=== PATIENT | female | born 1975 | race Hispanic/Latino ===

== ENCOUNTER → 2017-12-14 | Day surgery (SDC) | payer OTHER ==
[~2017-12-14] MED LIST: BUPIVACAINE HCL 0.5% INJ 30 ML VIAL INJ ONE; CLINDAMYCIN PHOS 900MG/ D5W 50 50 ML IV ONE; DEXAMETHASONE SOD PHOS INJ 4 MG/ML VIAL ONE; FENTANYL CITRATE/PF 100MCG/2 ML INJ ONE; LIDOCAINE HCL 2% LOCAL INJ 5 ML SDV VIAL INJ ONE; LORATADINE10 MG PO; LORAZEPAM0.5 MG PO; MIDAZOLAM HCL 2 MG/2 ML VIAL ONE; ONDANSETRON HCL INJ 2 MG/ML VIAL ONE; PROPOFOL IV EMULSION 10 MG/ML 20 ML VIAL ONE; SEVOFLURANE INHAL SOLN 250 ML PEN BTL ONE; SILVER SULFADIAZINE 50GM CREAM TOP ONE
--- NOTE | 2017-12-29 15:56 | Operative Report ---
DATE OF PROCEDURE: December 14, 2017 PREOPERATIVE DIAGNOSIS: Right foot plantar verruca. POSTOPERATIVE DIAGNOSIS: Right foot plantar verruca. PROCEDURES 1. Carbon dioxide ablation of verruca, right plantar foot. 2. Right tibial nerve block. HEMOSTASIS: None. PROCEDURE: After informed consent was obtained, the patient was brought into the operating room and placed on the operating table in the supine position. General anesthesia was obtained. The right lower extremity was then scrubbed, prepped and draped in the usual aseptic manner. Attention was directed to the plantar aspect of the right foot where the verruca was identified. It was then debrided down to the level of the subcutaneous utilizing a #15 blade. Next, utilizing a CO2 laser at settings each 12 and 15, the verruca was cauterized multiple times and debrided of all nonviable tissue. Once it was noted that the verruca was completely ablated, the surgical site was anesthetized utilizing 10 mL of 0.5% Marcaine plain. The right foot was then placed in a dry sterile dressing consisting of antibiotic ointment, 4 x 4's, Kerlix, and an Tank wrap. The patient tolerated the procedure and anesthesia well. The patient was transferred back to the recovery room with vital signs stable and neurovascular status intact to preop status. Job#: [id number]
== END | disposition home or self-care (01) ==
LOC: OR 10:54
PROVIDERS: ATTEND Podiatrist Foot & Ankle Surgery
DX: B07.0 Plantar wart (principal); I10 Essential (primary) hypertension; Z88.0 Allergy status to penicillin
CPT/HCPCS: 17110; 81025; J1100; J2001; J2250; J2405